=== PATIENT | male | born 1985 | race Caucasian/White ===

== ENCOUNTER 2017-09-25 00:33 | Inpatient (IN) | payer OTHER, MEDICAID ==
[~2017-09-25] VITALS: Ht 167.6 cm; Wt 77.1 kg
[2017-09-25] MEDS ORDERED: SODIUM CHLORIDE 0.9% 1,000 ML IV ONE (02:38)
[2017-09-25] MEDS ORDERED: MORPHINE SULFATE 4 MG/ML CPJ (NOT FOR IM USE) IV STA (02:38)
[2017-09-25] MEDS ORDERED: ONDANSETRON HCL 4MG/2ML VIAL IV STA (02:38)
[2017-09-25 03:02] LABS: BASOPHILS % 0.2 % (0.0-2.0); EOSINOPHILS % 0.2 % (0.0-5.0); HEMATOCRIT. 45.5 % (42.0-52.0); HEMOGLOBIN. 15.4 g/dL (14.0-18.0); LYMPHOCYTES % 5.1 % (20.0-50.0); MEAN CORPUSCULAR HEMOGLOBIN 29.9 pg (28.0-32.0); MONOCYTES % 3.2 % (2.0-8.0); NEUTROPHILS % 91.3 % (40.0-76.0); PLATELET 233 x1000/uL (130-400); RED BLOOD CELL COUNT 5.17 mill/uL (4.7-6.1); RED CELL DISTRIBUTION WIDTH 13.8 % (11.6-14.6)
[2017-09-25 03:11] LABS: CHLORIDE 104 mEq/L (98-107)
[2017-09-25 03:54] LABS: TROPONIN I < 0.02 ng/mL (0.00-0.04)
[2017-09-25 04:07] LABS: CLARITY URINE CLEAR (CLEAR); COLOR URINE YELLOW (YELLOW); KETONES URINE TRACE (NEGATIVE); LEUKOCYTE ESTERASE URINE NEGATIVE (NEGATIVE); NITRITE URINE NEGATIVE (NEGATIVE); OCCULT BLOOD URINE NEGATIVE (NEGATIVE); PROTEIN URINE NEGATIVE (NEGATIVE); SPECIFIC GRAVITY URINE 1.031 (1.005-1.030)
[2017-09-25 04:10] LABS: CARBON DIOXIDE 27 mEq/L (21-32)
[2017-09-25] MEDS ORDERED: SODIUM CHLORIDE 0.9% 1,000 ML IV SCH (05:36)
[2017-09-25 09:30] VITALS: BP 120/80
[2017-09-25] MEDS ORDERED: KETOROLAC 15MG/ML VIAL IV PRN (10:30)
[2017-09-25] MEDS ORDERED: ACETAMINOPHEN 650MG SUPP PR PRN ×2 (10:30→16:15)
[2017-09-25] MEDS ORDERED: IPRATROPIUM/ALBUTEROL 0.5-3(2.5)MG/3ML NEB INH PRN (10:30)
[2017-09-25] MEDS ORDERED: ONDANSETRON HCL 4MG/2ML VIAL IV PRN ×2 (10:30→16:15)
[2017-09-25] MEDS ORDERED: LORAZEPAM 2MG/ML CPJ IV PRN (10:30)
[2017-09-25] MEDS ORDERED: DIPHENHYDRAMINE 50MG/ML VIAL IV PRN (10:30)
[2017-09-25] MEDS ORDERED: MORPHINE SULFATE 4 MG/ML CPJ (NOT FOR IM USE) IV PRN ×4 (10:30→17:00)
[2017-09-25] MEDS ORDERED: DEXT 5%/0.45% NACL 1000ML 1,000 ML IV SCH (11:00)
[2017-09-25] MEDS: PANTOPRAZOLE SODIUM 40 MG/VIAL IV SCH (11:40)
[2017-09-25] MEDS ORDERED: BUPIVACAINE HCL 0.5% (5MG/ML) 50ML ONE (11:56)
[2017-09-25] MEDS ORDERED: SKIN ADHESIVE 0.7 GM EA TOP ONE (11:57)
[2017-09-25 12:00] VITALS: BP 117/74
[2017-09-25] MEDS ORDERED: NORMAL SALINE 0.9% 10 ML SYR ONE (13:32)
[2017-09-25] MEDS ORDERED: PROPOFOL 200MG/20ML VIAL IV ONE (15:18)
[2017-09-25] MEDS ORDERED: ROCURONIUM BROMIDE 10MG/ML VIAL 5ML IV ONE (15:18)
[2017-09-25] MEDS ORDERED: LIDOCAINE HCL/PF 1% 10 MG/ML 5ML VIAL ONE (15:18)
[2017-09-25] MEDS ORDERED: FENTANYL CITRATE/PF 50MCG/ML 2ML VIAL ONE (15:18)
[2017-09-25] MEDS ORDERED: MIDAZOLAM HCL 2 MG/2 ML VIAL ONE (15:19)
[2017-09-25] MEDS ORDERED: DEXAMETHASONE 4MG/ML 1ML VIAL ONE (15:38)
[2017-09-25] MEDS ORDERED: ONDANSETRON HCL 4MG/2ML VIAL ONE (15:38)
[2017-09-25] MEDS ORDERED: LEVOFLOXACIN 500MG PREMIX 100 ML IV ONE (15:54)
[2017-09-25] MEDS ORDERED: GLYCOPYRROLATE 0.2 MG/ML 2ML VIAL ONE ×2 (16:07→16:18)
[2017-09-25] MEDS ORDERED: NEOSTIGMINE METHYLSULFATE 1MG/ML 10 ML VIAL ONE (16:07)
[2017-09-25] MEDS ORDERED: ACETAMINOPHEN 325MG TABLET PO PRN (16:15)
[2017-09-25] MEDS ORDERED: HYDROCODONE/ACETAMINOPHEN 5/325MG TABLET PO PRN ×2 (16:15)
[2017-09-25] MEDS ORDERED: DEXT 5%/0.45% NACL KCL 20MEQ/L 1,000 ML IV SCH (18:00)
[2017-09-25 20:00] VITALS: BP 130/82
[2017-09-25] MEDS: SODIUM CHLORIDE 0.9% INJ 3ML FLUSH IVF SCH (21:42)
[2017-09-26] VITALS: BP 124/77
[2017-09-26 04:00] VITALS: BP 111/67
[2017-09-26] MEDS: SODIUM CHLORIDE 0.9% INJ 3ML FLUSH IVF SCH (06:19)
[2017-09-26 08:00] VITALS: BP 121/74
[2017-09-26] MEDS: PANTOPRAZOLE SODIUM 40 MG/VIAL IV SCH (09:22)
[2017-09-26 12:00] VITALS: BP 131/79
[2017-09-26 13:47] VITALS: BP 131/79
== END 2017-09-26 15:12 | disposition home or self-care (01) | DRG 343 ==
LOC: ER 00:33 → 6EST 05:37 → ENRESERV 07:04
PROVIDERS: ADMIT Internal Medicine; ATTEND Internal Medicine
PROC: 0DTJ4ZZ Resection of Appendix, Percutaneous Endoscopic Approach (ICD-10-PCS; principal; 2017-09-25 12:00)
DX: K35.80 Unspecified acute appendicitis (principal); K66.8 Other specified disorders of peritoneum; R73.9 Hyperglycemia, unspecified; F43.9 Reaction to severe stress, unspecified
CPT/HCPCS: 36415; 74176; 80053; 81003; 83036; 83690; 84484; 85025; 88304; 88312; 93005; 96361; 96374; 96375; 99285; A4216; C9113; J1100; J1956; J2250; J2270; J2405; J2704; J2710; J3010; J3490; J7030